=== PATIENT | male | born 1980 | race Caucasian/White ===

== ENCOUNTER 2018-01-11 01:35 | Emergency (ER) | payer SELFPAY ==
[~2018-01-11] VITALS: Ht 172.7 cm; Wt 99.8 kg
[2018-01-11 01:47] VITALS: BP 99/65
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
[2018-01-11 02:38] VITALS: BP 105/65
[2018-01-11 03:56] VITALS: BP 115/54
[2018-01-11 05:12] VITALS: BP 115/64
== END 2018-01-11 05:21 | disposition home or self-care (01) ==
LOC: EDBD 01:35 → EMR 01:51
DX: F10.129 Alcohol abuse with intoxication, unspecified (principal)
CPT/HCPCS: 36415; 96374; 99284; G0480; J2405; 80329